=== PATIENT | female | born 1980 | race Hispanic/Latino ===

== ENCOUNTER 2018-08-04 18:59 | Emergency (ER) | payer SELFPAY ==
[2018-08-04 20:35] LABS: RAPID GROUP A STREP NEGATIVE (NEGATIVE)
== END 2018-08-04 21:00 | disposition home or self-care (01) ==
LOC: EDH 18:59
DX: J30.9 Allergic rhinitis, unspecified (principal); J02.9 Acute pharyngitis, unspecified
CPT/HCPCS: 87804; 87880